=== PATIENT | female | born 1975 | race Caucasian/White ===

== ENCOUNTER 2017-07-18 15:40 | Emergency (ER) | payer MEDICARE, MEDICAID, SELFPAY ==
[2017-07-18 15:41] VITALS: BP 112/75; PULSE 87; RESP 16; TEMP 36.8; O2SAT 100; BMI 22.0
--- NOTE | 2017-07-18 15:56 | ED.VISSUMM ---
- ER Visit Summary Date of Service: 07/18/17 Chief Complaint: Constipation History of Present Illness: The patient is a 42 F sent from urgent care for 2 week history of constipation. She is complaining of abdominal pain. She is passing gas. She denies fever. She is a history of constipation secondary to her seizure medications. She does not take anything prophylactically for her constipation. Prior abdominal surgeries include cholecystectomy and tubal ligation. Physical Examination: Vital signs are unremarkable. Head neck examination is normal. Heart is regular rate and rhythm. No lung sounds are clear. Abdomen is soft with no focal tenderness on exam. She allows deep palpation throughout. She has active bowel sounds. Test Results: KUB reveals abundant stool with no evidence of obstruction. On review of the x-ray there is a lot of stool distally. Emergency Department Course and Treatment: Patient was given a soapsuds enema and had good results. She be given mag citrate and MiraLAX at home. Treatment Plan: [] Disposition: Discharge Impression: Constipation This note was generated with [employer] dictation software. It may contain incorrect words, spelling, and punctuation that were not noted in review of the chart prior to signing ED Disposition - Plan for ED Patient: Chief Complaint: Constipation Referrals: Joe Tijerina DO [Primary Care Provider] -
--- NOTE | 2017-07-18 16:00 | RAD_ITS ---
STUDY: X-RAY - ABDOMEN/PELVIS REASON FOR EXAM: Female, 42 years old. Constipation. TECHNIQUE: Two AP supine views of the abdomen and pelvis. COMPARISON: None. FINDINGS: Normal visualized lung bases. There is an unremarkable bowel gas pattern. No dilated small bowel. There is abundant stool. There is no demonstrated free abdominal air. The visualized liver, spleen and kidneys are grossly normal in size and morphology. Normal soft tissue structures. Normal visualized osseous structures. RAD/Abdomen Single View IMPRESSION: Abundant stool. No obstruction. Electronically Signed: Rahul Topete MD at 17:01 EST , Service support ,
--- NOTE | 2017-07-18 19:07 | ED.DEP ---
ED Disposition - Plan for ED Patient: Disposition: Home or Assisted Living Chief Complaint: Constipation Instructions: ED Constipation Prescriptions: Magnesium Citrate 0.5 bottle PO DAILY #1 bottle Polyethylene Glycol 3350 [Miralax] 17 gm PO DAILY #30 packet Referrals: Joe Tijerina DO [Primary Care Provider] - 1-2 Weeks
[2017-07-18 19:26] VITALS: BP 108/62; PULSE 71; RESP 16; O2SAT 97
== END 2017-07-18 19:26 | disposition home or self-care (01) ==
PROVIDERS: Emergency Provider Emergency Medicine; Family Provider Student in an Organized Health Care Education/Training Program; PCP Student in an Organized Health Care Education/Training Program
DX: K59.00 Constipation, unspecified (principal); G40.909 Epilepsy, unspecified, not intractable, without status epilepticus; F79 Unspecified intellectual disabilities; F32.9 Major depressive disorder, single episode, unspecified; Z87.19 Personal history of other diseases of the digestive system; Z90.49 Acquired absence of other specified parts of digestive tract; Z98.51 Tubal ligation status; Z87.891 Personal history of nicotine dependence; Z79.899 Other long term (current) drug therapy
CPT/HCPCS: 74018; 99284

== ENCOUNTER → 2017-11-01 12:04 | Outpatient (CLI) | payer MEDICARE, MEDICAID, SELFPAY ==
[2017-11-01 13:25] LABS: AST(SGOT) 16 U/L (15-37); Alanine Aminotransfer ALT/SGPT 25 U/L (13-56); Albumin, Serum 3.6 g/dL (3.2-5.0); Alkaline Phosphatase 57 U/L (45-117); Anion Gap 7 (5-15); BUN 21 mg/dL (7-18); BUN/Creat Ratio 33.3 RATIO (10-20); Calcium,Total 8.6 mg/dL (8.5-10.1); Chloride 115 mmol/L (98-107); Creatinine, Serum 0.63 mg/dL (0.55-1.02); EST Glomerular Filtration Rate 109 mL/min (>60); Est Glom Filt Rate - Afr Amer 132 mL/min (>60); Globulin 3.7 g/dL (2.2-4.2); Glucose 67 mg/dL (74-106); Potassium 3.9 mmol/L (3.5-5.1); Protein, Total 7.3 g/dL (6.4-8.2); Sodium Level 143 mmol/L (136-145)
[2017-11-01 13:51] LABS: Valproic Acid (Depakene) Level 79 ug/mL (50-100)
== END ==
PROVIDERS: Family Provider Student in an Organized Health Care Education/Training Program; PCP Student in an Organized Health Care Education/Training Program; Visit Provider Nurse Practitioner Acute Care
DX: G40.909 Epilepsy, unspecified, not intractable, without status epilepticus (principal)
CPT/HCPCS: 36415; 80053; 80164

== ENCOUNTER → 2018-11-05 | Outpatient (CLI) | payer MEDICARE, MEDICAID, SELFPAY ==
[2018-11-05 17:06] LABS: Absolute Lymphocyte Count 2.11 X10^3/ul (0.83-4.51); Absolute Neutrophil Count 2.9 X10^3/uL (2.0-7.7); Basophil# 0.04 X10^3/uL; Basophil% 0.7 % (0-1); Eosinophil# 0.09 X10^3/uL; Eosinophils% 1.5 % (0-5); Hematocrit 43.4 % (37-47); Hemoglobin 13.9 g/dl (12.0-15.0); Lymphocyte # 2.11 X10^3/ul (4.0); Lymphocyte % 36.3 % (19-41); Mean Corpuscular Hgb 29.3 pg (27.0-32.0); Mean Corpuscular Volume 91.4 fL (81-99); Mean Platelet Vol. 11.6 fl (6.2-12.0); Monocyte# 0.68 X10^3/uL; Monocyte% 11.7 % (0-10); Neutrophil # 2.89 X10^3/uL (2.7-7.7); Neutrophil % 49.6 % (47-70); Platelet Count 255 K/mm3 (150-450); RBC Distribution Width CV 13.4 % (11.6-14.6); RBC Distribution Width SD 44.6 fl (35.1-43.9); Red Blood Count 4.75 M/mm3 (4.2-5.4); White Blood Count 5.8 K/mm3 (4.4-11.0)
[2018-11-05 17:07] LABS: POSITIVE COUNT NO; POSITIVE DIFFERENTIAL NO; POSITIVE MORPHOLOGY NO
[2018-11-05 17:39] LABS: Valproic Acid (Depakene) Level 78 ug/mL (50-100)
[2018-11-05 17:43] LABS: AST(SGOT) 16 U/L (15-37); Alanine Aminotransfer ALT/SGPT 20 U/L (13-56); Albumin, Serum 3.6 g/dL (3.2-5.0); Alkaline Phosphatase 50 U/L (45-117); Anion Gap 7 (5-15); BUN 16 mg/dL (7-18); BUN/Creat Ratio 19.4 RATIO (10-20); Bilirubin, Direct < 0.05 mg/dL (0.00-0.30); Calcium,Total 8.8 mg/dL (8.5-10.1); Chloride 110 mmol/L (98-107); Creatinine, Serum 0.82 mg/dL (0.55-1.02); EST Glomerular Filtration Rate 80 mL/min (>60); Est Glom Filt Rate - Afr Amer 97 mL/min (>60); Globulin 3.6 g/dL (2.2-4.2); Glucose 70 mg/dL (74-106); Potassium 4.4 mmol/L (3.5-5.1); Protein, Total 7.2 g/dL (6.4-8.2); Sodium Level 142 mmol/L (136-145)
== END | disposition home or self-care (01) ==
LOC: LAB 14:33
PROVIDERS: Family Provider Student in an Organized Health Care Education/Training Program; PCP Student in an Organized Health Care Education/Training Program; Referring Provider Nurse Practitioner Family; Visit Provider Nurse Practitioner Family
DX: R56.9 Unspecified convulsions (principal)
CPT/HCPCS: 36415; 80053; 80164; 82248; 85025

== ENCOUNTER 2020-05-25 10:06 | Emergency (ER) | payer MEDICARE, MEDICAID, SELFPAY ==
[2020-05-25 10:07] VITALS: BP 93/76; PULSE 85; RESP 16; TEMP 36.1; O2SAT 100; BMI 26.9
--- NOTE | 2020-05-25 10:20 | CT_ITS ---
STUDY: CT ABDOMEN AND PELVIS WITH CONTRAST REASON FOR EXAM: Female, 45 years old. DIFFUSE ABD PAIN X 3 DAYS. DIARRHEA X 1 DAY. PRIOR CHOLECYSTECTOMY RADIATION DOSAGE (If Supplied By Facility): CTDIvol = ( 14.93 ) mGy, DLP = ( 711.10 ) mGycm TECHNIQUE: Transaxial images were obtained from the dome of the diaphragm to the symphysis pubis with oral contrast. Oral and IV Gastrografin and 100mL Isovue-300 was administered. Sagittal and coronal images were reconstructed. Individualized dose optimization techniques were used for this CT. COMPARISON: None. FINDINGS: The visualized lung bases are unremarkable. The visualized portions of the heart are within normal limits. Normal liver. There are surgical clips in the gallbladder fossa consistent with a prior cholecystectomy. Mild intrahepatic and extrahepatic biliary duct dilatation likely due to prior cholecystectomy. Normal spleen. Normal pancreas. Normal bilateral adrenal glands. Subcentimeter right renal upper pole and left renal lower pole hypodense lesion is too small to characterize. Normal visualized stomach. Normal small intestine. Normal colon. The appendix is visualized and appears normal. Normal abdominal aorta. Normal inferior vena cava. Normal retroperitoneum. Normal urinary bladder. Normal abdominal wall. There is straightening of the lumbar spine. CT/Abdomen/Pelvis WITH Contrast IMPRESSION: No acute abdominal or pelvic pathology. Electronically Signed: Mabel Sutherland, at 12:44 EST Tel , Service support ,
--- NOTE | 2020-05-25 10:21 | EKG12_ITS ---
Test Reason : STOMACH PAIN Blood Pressure : / mmHG Vent. Rate : 074 BPM Atrial Rate : 074 BPM P-R Int : 162 ms QRS Dur : 086 ms QT Int : 388 ms P-R-T Axes : 032 025 030 degrees QTc Int : 430 ms Normal sinus rhythm Normal ECG Confirmed by BERNARDO STAHL, JOHN ([id number]), commissioning editor PRAVEEN HENRY ([id number]) on 05/26/2020 10:59:54 AM Referred By: REGINA Confirmed By:JOHN CHANG MD
--- NOTE | 2020-05-25 10:22 | ED.VISSUMM ---
- ER Visit Summary Date of Service: 05/25/20 Chief Complaint: [Abdominal pain] History of Present Illness: The patient is a 45 F [presents to the emergency department complaint of abdominal pain is started 3 days ago. Patient states the pains been continuous. Patient states that if she eats spicy foods it seems to cause her to have diarrhea and worsening pain. Patient states that she has a history of gallstones but has not had a cholecystectomy. Patient's had no nausea or vomiting with this. She is had no fever. She did have one episode of diarrhea 2 days ago. Patient had a normal bowel movement this morning. She denies any blood in her stool or black tarry stool. She denies fever, cough, sore throat, or exposures to anybody with COVID-19. Patient denies urinary symptoms. She is had no prior surgeries. Patient does have history of seizure disorder.] Physical Examination: [HEENT-PERRLA, EOMI. Cranial nerves II through XII grossly intact. TMs clear. Mucous membranes moist. No adenopathy. Cardiovascular-regular rate and rhythm without murmur or ectopy Lungs-clear to auscultation, chest wall stable without crepitus or subcu emphysema Abdomen-normoactive bowel sounds, soft. Patient has tenderness palpation over the epigastric region with guarding. There is no rebound, rigidity, or cranial signs. No significant tenderness over McBurney's. Negative Almonte sign. Extremities-intact ?4, normal range of motion, normal pulses, atraumatic] Test Results: [EKG obtained arrival shows sinus rhythm with a ventricular rate of 74 bpm with no acute segment changes. CBC with differential showed a white count of 3.8, hemoglobin 13.5, hematocrit 43, platelets 197. Chemistries unremarkable. LFTs were normal. Lipase normal. Troponin was less than 0.015. Urinalysis was positive for 500 excite esterase as well as 25-50 WBCs and +[address] scan of the abdomen pelvis with IV and p.o. contrast essentially showed nothing acute.] Emergency Department Course and Treatment: [Patient was given an IV on arrival and was medicated with morphine sulfate 4 mg IV and Zofran 4 mg IV. Patient was given a dose of Bactrim DS p.o. x1.] Treatment Plan: [This point etiology of patient's abdominal pain is unclear however given that it is epigastric and somewhat related to food I will cover her with Prevacid. Patient also will be started on Bactrim. Patient advised to follow-up with primary care physician within next 3 to 5 days. Patient advised to return if worsening pain, fever, vomiting, or condition should worsen anyway.] Disposition: [Discharged home in stable condition] Impression: [Abdominal pain-etiology uncertain UTI] This note was generated with [employer] dictation software. It may contain incorrect words, spelling, and punctuation that were not noted in review of the chart prior to signing ED Disposition - Plan for ED Patient: Referrals: Joe Tijerina DO [Primary Care Provider] -
--- NOTE | 2020-05-25 10:36 | NURSING ---
NO PREVIOUS EKG IN OUR SYSTEM
[2020-05-25] MEDS: Ondansetron 4 MG/2 ML Vial IV (11:01)
[2020-05-25] MEDS: 0.9% Normal Saline 1,000 ML 125 ML IV (11:01)
[2020-05-25] MEDS: Morphine 4 MG/ML Syringe IV (11:02)
[2020-05-25 11:29] LABS: Absolute Lymphocyte Count 1.22 X10^3/uL (0.83-4.51); Absolute Neutrophil Count 1.8 X10^3/uL (2.0-7.7); Basophil# 0.04 X10^3/uL; Basophil% 1.1 % (0-1); Eosinophil# 0.11 X10^3/uL; Eosinophils% 2.9 % (0-5); Hemoglobin 13.5 g/dL (12.0-15.0); Lymphocyte # 1.22 X10^3/ul (4.0); Lymphocyte % 32.1 % (19-41); Mean Corp Hgb Conc 31.4 g/dL (32-36); Mean Corpuscular Hgb 28.8 pg (27.0-32.0); Mean Corpuscular Volume 91.9 fL (81-99); Mean Platelet Vol. 11.6 fl (6.2-12.0); Monocyte# 0.64 X10^3/uL; Monocyte% 16.8 % (0-10); NRBC Flagged by Analyzer 0 % (0-5); Neutrophil # 1.78 X10^3/uL (2.7-7.7); Neutrophil % 46.8 % (47-70); Platelet Count 197 K/mm3 (150-450); RBC Distribution Width CV 13.2 % (11.6-14.6); RBC Distribution Width SD 44.6 fl (35.1-43.9); Red Blood Count 4.68 M/mm3 (4.2-5.4); White Blood Count 3.8 K/mm3 (4.4-11.0)
[2020-05-25 11:47] LABS: Mucous, Urine 0 SEEN /hpf (<or=2+)
[2020-05-25 11:50] LABS: AST(SGOT) 12 U/L (15-37); Alanine Aminotransfer ALT/SGPT 23 U/L (13-56); Albumin, Serum 3.4 g/dL (3.2-5.0); Alkaline Phosphatase 52 U/L (45-117); Anion Gap 5 (5-15); BUN 13 mg/dL (7-18); BUN/Creat Ratio 19.5 RATIO (10-20); Calcium,Total 8.5 mg/dL (8.5-10.1); Chloride 113 mmol/L (98-107); Creatinine, Serum 0.67 mg/dL (0.55-1.02); EST Glomerular Filtration Rate 101 mL/min (>60); Est Glom Filt Rate - Afr Amer 123 mL/min (>60); Estimated Creatinine Clearance 94.41 ml/min; Globulin 3.5 g/dL (2.2-4.2); Glucose 90 mg/dL (74-106); Lactic Acid 0.7 mmol/L (0.4-1.9); Lipase 187 U/L (73-393); Potassium 3.7 mmol/L (3.5-5.1); Protein, Total 6.9 g/dL (6.4-8.2); Sodium Level 143 mmol/L (136-145)
[2020-05-25 11:59] LABS: Color, Urine Yellow (Yellow); Glucose, Dipstick Normal (Normal); Ketone-Dipstick Negative (Negative); Leukocyte Esterase-Dipstick 500 /ul (Negative); Nitrite-Dipstick Negative (Negative); Occult Blood-Urine 10 /ul (Negative); Protein-Dipstick 15 mg/dl (Negative); Urine Bilirubin Dipstick Negative (Negative); Urine Clarity Clear (Clear); Urine Urobilinogen Normal (Normal)
[2020-05-25 12:11] LABS: Bacteria 1+ /hpf (None Seen); Red Blood Cells-Urine 0-5 SEEN /hpf (0-5); Squamous Epithelial Cells - UA 5-10 SEEN /hpf (5-10); White Blood Cells 25-50 SEEN /hpf (0-5)
--- NOTE | 2020-05-25 13:05 | ED.DEP ---
ED Disposition - Plan for ED Patient: Instructions: ED Abdominal Pain Unkn Cause Fem, ED Bladder Infection, Female (Adult) Prescriptions: Smz/Tmp Ds [Bactrim Ds] 1 tab PO BID #6 tab Prescription Printed Lansoprazole [Prevacid] 30 mg PO DAILY #30 cap Prescription Printed Referrals: Joe Tijerina DO [Primary Care Provider] - 3-5 Days
[2020-05-25 13:39] VITALS: BP 100/56; PULSE 84; RESP 16; O2SAT 98
== END 2020-05-25 13:44 | disposition home or self-care (01) ==
LOC: ED 10:43
PROVIDERS: Emergency Provider Emergency Medicine; PCP Student in an Organized Health Care Education/Training Program
DX: R10.9 Unspecified abdominal pain (principal); N39.0 Urinary tract infection, site not specified; G40.909 Epilepsy, unspecified, not intractable, without status epilepticus; Z79.899 Other long term (current) drug therapy
CPT/HCPCS: 74177; 80053; 81001; 83605; 83690; 84484; 85025; 87086; 87088; 93005; 96361; 96374; 96375; 99283; J7030; Q9967; A4216; J2405

== ENCOUNTER → 2024-06-18 | Outpatient (CLI) | payer MEDICARE, SELFPAY ==
[2024-06-18 12:27] LABS: Color, Urine Yellow (Yellow); Glucose, Dipstick Normal (Normal); Ketone-Dipstick Negative (Negative); Leukocyte Esterase-Dipstick 500 /ul (Negative); Nitrite-Dipstick Negative (Negative); Occult Blood-Urine 25 /ul (Negative); Protein-Dipstick 30 mg/dl (Negative); Specific Gravity, Urine 1.025 (1.002-1.030); Urine Clarity Turbid (Clear); Urine Urobilinogen 1 mg/dl (Normal)
[2024-06-18 12:31] LABS: Urine Bilirubin Dipstick 1 mg/dL (Negative)
== END | disposition home or self-care (01) ==
PROVIDERS: PCP Family Medicine
DX: N39.0 Urinary tract infection, site not specified (principal)
CPT/HCPCS: 36415; 81002; 87086; 87088

== ENCOUNTER → 2024-07-21 | Outpatient (CLI) | payer MEDICARE, SELFPAY ==
[2024-07-21 12:44] LABS: Absolute Lymphocyte Count 1.15 X10^3/uL (0.83-4.51); Absolute Neutrophil Count 2.8 X10^3/uL (2.0-7.7); Basophil# 0.08 X10^3/uL; Basophil% 1.6 % (0-1); Eosinophil# 0.29 X10^3/uL; Hematocrit 42.8 % (37-47); Hemoglobin 13.2 g/dL (12.0-15.0); Lymphocyte # 1.15 X10^3/ul (0.83-4.51); Lymphocyte % 23.7 % (19-41); Mean Corp Hgb Conc 30.8 g/dL (32-36); Mean Corpuscular Hgb 27.7 pg (27.0-32.0); Mean Corpuscular Volume 89.7 fL (81-99); Mean Platelet Vol. 11.6 fl (6.2-12.0); Monocyte# 0.51 X10^3/uL; Monocyte% 10.5 % (0-10); NRBC Flagged by Analyzer 0 % (0-5); Neutrophil # 2.81 X10^3/uL (2.7-7.7); Platelet Count 276 K/mm3 (150-450); RBC Distribution Width SD 46.3 fl (35.1-43.9); Red Blood Count 4.77 M/mm3 (4.2-5.4); White Blood Count 4.9 K/mm3 (4.4-11.0)
[2024-07-21 13:37] LABS: ALB/GLOB Ratio 1.1 RATIO (0.9-2.4); AST(SGOT) 20 U/L (15-37); Alanine Aminotransfer ALT/SGPT 28 U/L (13-56); Albumin, Serum 3.5 g/dL (3.2-5.0); Alkaline Phosphatase 62 U/L (45-117); Anion Gap 8 (5-15); BUN 8 mg/dL (7-18); BUN/Creat Ratio 13.1 RATIO (10-20); Calcium,Total 9.4 mg/dL (8.5-10.1); Chloride 115 mmol/L (98-107); Creatinine, Serum 0.61 mg/dL (0.55-1.02); EST Glomerular Filtration Rate 110 mL/min (>60); Est Glom Filt Rate - Afr Amer 134 mL/min (>60); Globulin 3.1 g/dL (2.2-4.2); Glucose 83 mg/dL (74-106); Potassium 5.4 mmol/L (3.5-5.1); Protein, Total 6.6 g/dL (6.4-8.2); Sodium Level 146 mmol/L (136-145)
== END | disposition home or self-care (01) ==
LOC: LABSPEC 09:22
PROVIDERS: PCP Family Medicine; Visit Provider Nurse Practitioner Psychiatric/Mental Health
DX: F32.A Depression, unspecified (principal)
CPT/HCPCS: 80053; 85025

== ENCOUNTER → 2024-07-31 | Outpatient (CLI) | payer MEDICARE, SELFPAY ==
[2024-07-31 12:49] LABS: Absolute Lymphocyte Count 1.64 X10^3/uL (0.83-4.51); Absolute Neutrophil Count 3.2 X10^3/uL (2.0-7.7); Basophil# 0.04 X10^3/uL; Basophil% 0.7 % (0-1); Eosinophil# 0.19 X10^3/uL; Eosinophils% 3.5 % (0-5); Hemoglobin 13.4 g/dL (12.0-15.0); Lymphocyte # 1.64 X10^3/ul (0.83-4.51); Lymphocyte % 29.9 % (19-41); Mean Corp Hgb Conc 31.2 g/dL (32-36); Mean Corpuscular Hgb 28.4 pg (27.0-32.0); Mean Corpuscular Volume 91.1 fL (81-99); Mean Platelet Vol. 10.4 fl (6.2-12.0); Monocyte# 0.39 X10^3/uL; Monocyte% 7.1 % (0-10); NRBC Flagged by Analyzer 0 % (0-5); Neutrophil # 3.22 X10^3/uL (2.7-7.7); Neutrophil % 58.6 % (47-70); Platelet Count 298 K/mm3 (150-450); RBC Distribution Width CV 13.6 % (11.6-14.6); RBC Distribution Width SD 45.8 fl (35.1-43.9); Red Blood Count 4.72 M/mm3 (4.2-5.4); White Blood Count 5.5 K/mm3 (4.4-11.0)
[2024-07-31 13:55] LABS: ALB/GLOB Ratio 1.6 RATIO (0.9-2.4); AST(SGOT) 25 U/L (<=31); Alanine Aminotransfer ALT/SGPT 19 U/L (<=34); Albumin, Serum 4.5 g/dL (3.5-5.0); Alkaline Phosphatase 78 U/L (35-104); Anion Gap 10 (5-15); BUN 8 mg/dL (4-19); BUN/Creat Ratio 11.4 RATIO (10-20); Calcium 9.9 mg/dL (7.6-11.0); Carbon Dioxide 22.3 mmol/L (22.0-29.0); Chloride 107 mmol/L (96-108); Creatinine, Serum 0.7 mg/dL (0.6-1.0); EST Glomerular Filtration Rate 106 (>60); Globulin 2.8 g/dL (2.2-4.2); Glucose 99 mg/dL (70-99); Potassium 3.9 mmol/L (3.3-5.1); Protein, Total 7.3 g/dL (5.9-8.4); Sodium Level 140 mmol/L (133-145); Total Bilirubin 0.36 mg/dL (0.00-1.30)
[2024-07-31 20:52] LABS: Cholesterol 159 mg/dL (<=200); High Density Lipoprotein 48 mg/dL; Low Density Lipoprotein Calc. 91 mg/dL; Triglycerides 99 mg/dL; Very Low Density Lipoprotein 20 mg/dL (5-40)
== END | disposition home or self-care (01) ==
LOC: VSLAB 11:29
PROVIDERS: PCP Family Medicine
DX: Z00.00 Encounter for general adult medical examination without abnormal findings (principal); F32.9 Major depressive disorder, single episode, unspecified; Z13.6 Encounter for screening for cardiovascular disorders
CPT/HCPCS: 36415; 80053; 80061; 84443; 85025

== ENCOUNTER 2024-08-22 21:35 | Emergency (ER) | payer MEDICARE, MEDICAID, SELFPAY ==
[2024-08-22 21:35] VITALS: BP 99/70; PULSE 88; RESP 16; TEMP 36.6; O2SAT 99; BMI 28.3
[2024-08-22 21:38] VITALS: BP 99/70; PULSE 88; RESP 16; TEMP 36.6; O2SAT 99
--- NOTE | 2024-08-22 22:07 | EX.ED.DYSGE1 ---
HPI History of Present Illness Chief Complaint: Complaint Informant: patient Onset/Context/Timing Onset: Today Context: Gradual Onset Timing: Continuous Worsened by: Nothing Relieved by: Nothing Narrative Narrative: Patient presents with possible urinary tract infection that was noticed today. Staff at the alf noted that the patient was having more frequent absence seizures. Staff reports that the patient had similar symptoms with prior urinary tract infections. Patient denies any dysuria or hematuria. Staff denies any fevers or chills. Staff reports the patient has had some diarrhea today. Patient admits to a mild headache. Patient denies any back pain. Patient denies any nausea or vomiting. Prior similar symptoms: Yes [facility] Medical History (Updated 08/22/24 @ 22:[address] Nicholas Branham, ) Depression GERD (gastroesophageal reflux disease) Migraine headache History of seizures Medical History no medical history Home Medications ?Medication ?Instructions ?Recorded ?Last Taken ?Type Depakote 750 mg DAILY 11/06/15 Unknown History Vitamin D 2,000 mg PO DAILY 11/06/15 Unknown History topiramate 100 mg tablet 100 mg PO DAILY 11/06/15 Unknown History polyethylene glycol 3350 17 gram 17 g PO DAILY #30 packets 07/18/17 Unknown Rx oral powder packet lansoprazole 30 mg capsule,delayed 30 mg PO DAILY #30 caps 05/25/20 Unknown Rx release sulfamethoxazole 800 1 tab PO BID #6 tabs 08/22/24 Unknown Rx mg-trimethoprim 160 mg tablet Allergy/AdvReac Type Severity Reaction Status Date / Time No Known Allergies Allergy Verified 08/22/24 21:35 Family History no significant family his Surgical History no surgical history no surgical history Social History Smoking Status: Never smoker ROS ROS ED Constitutional Constitutional ED: Denies chills or fever(s) Eyes Eyes: Denies blurry vision or diplopia ENT ENT ED: Denies rhinorrhea or sore throat Cardiovascular Cardiovascular: Denies chest pain or palpitations Respiratory/Chest Respiratory/Chest: Reports cough; Denies dyspnea Gastrointestinal Gastrointestinal: Reports diarrhea; Denies nausea or vomiting Genitourinary Genitourinary ED: Denies dysuria or hematuria Musculoskeletal Musculoskeletal: Denies back pain or neck pain Integumentary Denies abscess or rash Neurologic Neurologic: Reports headache(s) Allergic/Immunologic Allergic/Immunologic ED: Denies mouth swelling or urticaria EXAM Physical Exam Const Vital Signs: 08/22/24 21:35 08/22/24 21:38 Temperature 97.9 F 97.9 F Temperature Source Oral Oral Pulse Rate 88 88 Respiratory Rate 16 16 Blood Pressure 99/70 99/70 Blood Pressure Mean 79 79 Pulse Ox 99 99 Oxygen Delivery Method Room Air Room Air Positive well nourished and well developed General Appearance ED: well developed and NAD HEENT Reports moist mucous membranes Neck supple and no JVD Resp normal respiratory effort and clear to auscultation bilaterally Cardio regular rate and regular rhythm GI non-tender and non-distended Palpation: soft Neuro oriented x3, CN's II-XII intact bilaterally and no sensory deficits noted Sensorium / Orientation: alert Motor Exam: strength 5/5 throughout Psych mental status grossly normal MDM MDM MDM Narrative Medical decision making narrative: Differential diagnosis includes urinary tract infection, and seizure disorder. Urinalysis will be obtained to assess for urinary tract infection. Lab Data Attestation: I reviewed the patient's lab results. Lab results narrative: Urinalysis was reviewed. Leukocyte esterase was 500. There are 10-25 white blood cells and 2+ bacteria. Occult blood was 150. There are 10-25 red blood cells noted. Treatment and Re-Evaluation :: Patient alf staff were advised of the findings. Patient was given a dose of Bactrim here. Patient was given a prescription for Bactrim. Patient was instructed to follow-up with her primary care physician in 5 to 7 days. Patient and staff understood and were agreeable with the plan. All questions were answered. Discharge Plan Triage Chief Complaint: Complaint Other Complaint: Seizure ED Provider: Nicholas Branham Dx/Rx/DC Orders Clinical Impression: Urinary tract infection, History of seizures Instructions: ED Cystitis Female Adult Prescriptions: Continued sulfamethoxazole-trimethoprim 1 TABLET tablet 1 tab PO BID Qty: 6 0RF No Action topiramate 100 MG tablet 100 mg PO DAILY Depakote 750 MG 750 mg DAILY Vitamin D 2,000 mg PO DAILY polyethylene glycol 3350 17 GM powder in packet 17 g PO DAILY Qty: 30 0RF lansoprazole 30 MG capsule 30 mg PO DAILY Qty: 30 0RF Primary Care Provider: Cindy Gil Referrals: Cindy Gil, DO [Primary Care Provider] - 5-7 Days Print Language: Persian Disposition Disposition: Home, Self Care
[2024-08-22 22:17] LABS: Mucous, Urine 0 SEEN /hpf (<or=2+); Squamous Epithelial Cells - UA 0 SEEN /hpf (5-10)
[2024-08-22 22:19] LABS: Glucose, Dipstick Normal (Normal); Ketone-Dipstick Negative (Negative); Leukocyte Esterase-Dipstick 500 /ul (Negative); Nitrite-Dipstick Negative (Negative); Occult Blood-Urine 150 /ul (Negative); Protein-Dipstick 30 mg/dl (Negative); Urine Bilirubin Dipstick Negative (Negative); Urine Urobilinogen Normal (Normal)
[2024-08-22 22:26] LABS: Color, Urine Yellow (Yellow); Red Blood Cells-Urine 10-25 SEEN /hpf (0-5); Urine Clarity Clear (Clear); White Blood Cells 10-25 SEEN /hpf (0-5)
[2024-08-22 22:27] LABS: Bacteria 2+ /hpf (None Seen); Transitional Epithelial - Ur 0-5 SEEN /hpf (0-5)
[2024-08-22 22:38] VITALS: BP 96/62; PULSE 88; RESP 16; TEMP 36.6; O2SAT 99
[2024-08-22 22:51] VITALS: BP 96/62; PULSE 16; RESP 16; TEMP 36.6; O2SAT 99
[2024-08-22] MEDS: Smz/Tmp Ds Tablet 1 TABLET PO (22:56)
== END 2024-08-22 22:58 | disposition home or self-care (01) ==
PROVIDERS: Emergency Provider Emergency Medicine; PCP Family Medicine; Visit Provider Emergency Medicine
DX: N39.0 Urinary tract infection, site not specified (principal); R56.9 Unspecified convulsions; R51.9 Headache, unspecified; R19.7 Diarrhea, unspecified; R05.9 Cough, unspecified; K21.9 Gastro-esophageal reflux disease without esophagitis; F32.A Depression, unspecified; Z79.899 Other long term (current) drug therapy
CPT/HCPCS: 81001; 99284; A4216

== ENCOUNTER → 2024-09-16 | Outpatient (CLI) | payer MEDICARE, MEDICAID, SELFPAY ==
--- NOTE | 2024-09-16 10:11 | BI_ITS ---
EXAM: SCRN MAMM (CAD)W/CLAUDIA BILAT DATE: 09/16/2024 CLINICAL HISTORY: F, Age 49 y/o , SCREENING No family history. BREAST CANCER RISK ASSESSMENT: Not assessed. TECHNIQUE: Bilateral screening digital breast tomosynthesis with 2D and 3D images. Computer aided detection. COMPARISON: Baseline examination. FINDINGS: TISSUE DENSITY: The breast tissue is extremely dense which lowers the sensitivity of mammography. Bilateral Breast Mammographic Findings: No significant masses, calcifications or other abnormalities are identified. BI/SCRN MAMM (CAD)W/CLAUDIA BILAT IMPRESSION: Right Breast: BIRADS 1 NEGATIVE. Left Breast: BIRADS 1 NEGATIVE. OVERALL FINAL ASSESSMENT: BIRADS 1 NEGATIVE RECOMMENDATION: Routine annual follow-up in 1 Year A letter with findings and recommendations will be mailed to the patient. Reading Location: [place] [id number]
== END | disposition home or self-care (01) ==
LOC: OPBI 10:10
PROVIDERS: PCP Family Medicine
DX: Z12.31 Encounter for screening mammogram for malignant neoplasm of breast (principal)
CPT/HCPCS: 77063; 77067

== ENCOUNTER → 2025-01-06 | Outpatient (CLI) | payer MEDICARE, MEDICAID, SELFPAY ==
[2025-01-06 10:06] LABS: Hematocrit 40.3 % (37-47); Hemoglobin 12.8 g/dL (12.0-15.0); Mean Corp Hgb Conc 31.8 g/dL (32-36); Mean Corpuscular Volume 93.1 fL (81-99); Mean Platelet Vol. 11.3 fl (6.2-12.0); Platelet Count 258 K/mm3 (150-450); RBC Distribution Width CV 13.0 % (11.6-14.6); RBC Distribution Width SD 44.2 fl (35.1-43.9); Red Blood Count 4.33 M/mm3 (4.2-5.4); White Blood Count 6.0 K/mm3 (4.4-11.0)
[2025-01-06 10:39] LABS: AST(SGOT) 24 U/L (<=31); Alanine Aminotransfer ALT/SGPT 28 U/L (<=34); Albumin, Serum 4.1 g/dL (3.5-5.0); Alkaline Phosphatase 101 U/L (35-104); Anion Gap 10 (5-15); BUN 20 mg/dL (4-19); BUN/Creat Ratio 42.9 RATIO (10-20); Calcium,Total 9.1 mg/dL (7.6-11.0); Carbon Dioxide 22.1 mmol/L (21.0-32.0); Chloride 112 mmol/L (98-108); Globulin 2.4 g/dL (2.2-4.2); Glucose 125 mg/dL (70-99); Potassium 3.6 mmol/L (3.3-5.1)
== END | disposition home or self-care (01) ==
PROVIDERS: PCP Family Medicine; Referring Provider Nurse Practitioner Psychiatric/Mental Health; Visit Provider Nurse Practitioner Psychiatric/Mental Health
DX: F32.A Depression, unspecified (principal)
CPT/HCPCS: 80053; 85027